=== PATIENT | male | born 1960 | race Caucasian/White ===

== ENCOUNTER 2017-02-05 05:54 | Observation (INO) | payer BC ==
[2017-02-05] MEDS ORDERED: ASPIRIN 81 MG CHEWTAB ONE (06:09)
[2017-02-05] MEDS ORDERED: ASPIRIN 81 MG CHEWTAB PO ONE (06:10)
--- NOTE | 2017-02-05 06:10 | DR.GENAD ---
HPI - HPI Comment HPI Comment: PATIENT HAVE NO SIGNIFICANT PAST MEDICAL ILLNESS. HE AVILES NOT TAKE ANY MEDICATION ON A DAILY BASES. HAVE EXPERIENCE HEART BURN ON AND OFF IN THE PAST. PAIN TODAY IS DIFFERENT. TODAYS PAIN IS INTERMITTENT WELL. DENIES TRAUMA. - Complaint/Symptoms Chief Complaint Doctors Comments: WOKE UP FROM SLEEP 05:20AM TODAY WITH SEVERE SUBSTENAL CHEST PRESSURE GOING INTO THE BACK OF THE CHEST ASSOCIATED WITH WEAKNESS, FATIGUE AND SOB. - Nurses notes reviewed Nurses Notes Review: Yes - Source History Provided: Patient - Mode of Arrival Mode of Arrival: Ambulatory - Timing Came on: Suddenly - Duration Duration: Constant Duration: Days - Severity Severity: Moderate PMH - PMH Past Surgical History: Yes Surgical History: Other - Social History Do you use any recreational Drugs:: No ROS - Review of Systems Constitutional: Weakness, Fatigue. negative: Chills, Fever Eyes: No Symptoms Reported. negative: Eye Pain, Discharge ENTM: No Symptoms Reported. negative: Ear Pain, Nose Discharge, Nose Congestion , Throat Pain Respiratoy: No Symptoms Reported, Short of Breath. negative: Productive Cough, Non-Productive Cough, Wheezing Cardiovascular: No Symptoms Reported Gastrointestinal/Abdominal: Abdominal Pain (EPIGASTRIC PAIN.) Genitourinary: No Symptoms Reported. negative: Dysuria, Frequency, Hematuria Neurological: No Symptoms Reported, Weakness. negative: Headache, Dizziness Musculoskeletal: No Symptoms Reported, Muscle Pain (UPPER BACK MUSCLES PAINFUL.) Integumentary: No Symptoms Reported Hematologic/Lymphatic: No Symptoms Reported Endocrine: No Symptoms Reported All Other Systems: Reviewed and Negative PE - Vital Signs Vitals: Temperature 98.6 F Pulse Rate [Apical] 54 Pulse Rate 57 Respiratory Rate 16 Blood Pressure [Right Arm] 110/73 Blood Pressure 131/69 O2 Sat by Pulse Oximetry 99 - General Limitations: No Limitations General Appearance: Alert - Head Head Exam: Normal Inspection - Eyes Eye exam: Normal Appearance - ENT ENT Exam: Normal External Ear Exam External Ear Exam: Normal External Inspection TM/Canal Exam: Bilateral Normal Nose Exam: Normal Nose Exam Mouth Exam: Normal Inspection Throat Exam: Normal Inspection - Neck Neck Exam: Normal Inspection - Chest Chest Inspection: Symmetric Chest Wall Rise - Respiratory Respiratory Exam: Normal Lung Sounds Bilat Respiratory Exam: Bilateral Rhonchi, Upper Rhonchi, Lower Rhonchi - Cardiovascular Cardiovascular Exam: Regular Rate, Normal Rhythm, Normal Heart Sounds - Abdominal Exam Abdominal Exam: Normal Bowel Sounds, Soft. negative: Tenderness - Extremities Extremities Exam: Normal Inspection. negative: Tenderness, Edema, Calf Tenderness - Back Back Exam: Tenderness (THORACIC SPINE.) - Neurologic Neurological Exam: Alert, Oriented X3, CN II-XII Intact, Normal Gait, Reflexes Normal. negative: Motor Sensory Deficit - Psychiatric Psychiatric Exam: Anxious - Skin Skin Exam: Normal Color MDM - Additional Information Additional Information Obtained From: Family - Differential Diagnosis Differential Diagnosis: CHEST PAIN Course - Treatment Treatment: SEE ORDERS. NTG PO WITH ASPRIN. STILL HURTING. MORPHIN IV WITH ZOFRAN. PAION IMPROVING. PATIENT WISH TO STAY AT THIS FACILY. - Reevaluation 1st: Improved - Consultation Consultation Comments: DISCUSS PATIENT WITH DR. SMITH. HE WILL ADMIT PATIENT. - Education/Counseling Education/Counseling: Patient, Education Educated On: Treatment, Diagnosis ROR - Labs Reviewed Laboratory Results Reviewed?: Yes Result Diagrams: 02/05/17 06:46 02/05/17 06:46 Laboratory: WBC 6.6 X10^3/uL (3.6-10.0) 02/05/17 06:46 RBC 4.93 X10^6/uL (4.7-6.0) 02/05/17 06:46 Hgb 15.5 g/dL (13.5-18.0) 02/05/17 06:46 Hct 44.1 % (42.0-54.0) 02/05/17 06:46 MCV 89.5 fL (80.0-100.0) 02/05/17 06:46 MCH 31.5 pg (27.0-34.0) 02/05/17 06:46 MCHC 35.2 g/dL (33.0-35.0) H 02/05/17 06:46 RDW 13.2 % (11.6-16.5) 02/05/17 06:46 Plt Count 202 X10^3/uL (150.0-450.0) 02/05/17 06:46 MPV 9.4 fL (7.4-11.0) 02/05/17 06:46 Neut % 59.9 % (42.0-75.0) 02/05/17 06:46 Lymph % 26.3 % (21.0-51.0) 02/05/17 06:46 [place] % 9.9 % (0.0-13.0) 02/05/17 06:46 Eos % 3.3 % (0.9-2.9) H 02/05/17 06:46 Baso % 0.6 % (0.2-1.0) 02/05/17 06:46 Neut # 4.0 x10^3/uL (2.2-4.8) 02/05/17 06:46 Lymph # 1.7 X10^3/uL (1.3-2.9) 02/05/17 06:46 [place] # 0.7 x10^3/uL (0.3-0.8) 02/05/17 06:46 Eos # 0.2 x10^3/uL (0.0-0.2) 02/05/17 06:46 Baso # 0.0 X10^3/uL (0.0-0.1) 02/05/17 06:46 Absolute Nucleated RBC 0.1 /100WBC 02/05/17 06:46 INR Target Range - 02/05/17 06:46 INR 0.92 (0.8-1.3) 02/05/17 06:46 PTT 24.1 SECONDS (22.9-36.5) 02/05/17 06:46 PTT Comment - 02/05/17 06:46 D-Dimer 110 ng/mL (0-400) 02/05/17 06:46 Sodium 141 mmol/L (136-145) 02/05/17 06:46 Corrected Sodium TNP 02/05/17 06:46 Potassium 4.2 mmol/L (3.5-5.1) 02/05/17 06:46 Chloride 106 mmol/L (98-107) 02/05/17 06:46 Carbon Dioxide 24.3 mmol/L (21-32) 02/05/17 06:46 BUN 16 mg/dL (7-18) 02/05/17 06:46 Creatinine 1.16 mg/dL (0.70-1.30) 02/05/17 06:46 Est GFR (MDRD) Af Amer > 60 (>60) 02/05/17 06:46 Est GFR (MDRD) Non-Af > 60 (>60) 02/05/17 06:46 Glucose 108 mg/dL (65-99) H 02/05/17 06:46 Calcium 9.2 mg/dL (8.5-10.1) 02/05/17 06:46 Corrected Calcium TNP 02/05/17 06:46 Total Bilirubin 0.60 mg/dL (0.2-1.0) 02/05/17 06:46 AST 25 Units/L (15-37) 02/05/17 06:46 ALT 44 Units/L (12-78) 02/05/17 06:46 Alkaline Phosphatase 98 Units/L (46-116) 02/05/17 06:46 Creatine Kinase 132 Units/L (39-308) 02/05/17 06:46 CK-MB (CK-2) 1.2 ng/mL (0-4.0) 02/05/17 06:46 CK/CKMB % Calc 0.9 % (<4) 02/05/17 06:46 Troponin I < 0.02 ng/mL (0-1.5) 02/05/17 06:46 B-Natriuretic Peptide 7.2 pg/mL (0-79) 02/05/17 06:46 Total Protein 6.7 g/dL (6.4-8.2) 02/05/17 06:46 Albumin 3.6 g/dL (3.4-5.0) 02/05/17 06:46 Globulin 3.1 g/dL (2.5-4.5) 02/05/17 06:46 Albumin/Globulin Ratio 1.2 Ratio (1.1-2.1) 02/05/17 06:46 H. pylori IgG Antibody Negative (NEGATIVE) 02/05/17 06:15 - XRAY XRAY Interpreted by: Radiologist XRAY Findings: REPORT DISCUSS WITH PATIENT AND HIS . - EKG Rhythm: NSR (EKG NOTED) - Diagnosis Discharge Problem: Chest pain - Discharge Plan Disposition: AGAINST MEDICAL ADVICE Condition: Stable - Follow ups/Referrals - Instructions
[2017-02-05] MEDS ORDERED: NITROSTAT SL PRN (06:18)
[2017-02-05] MEDS ORDERED: NS 1000 ML 0 ML ONE (06:21)
[2017-02-05] MEDS ORDERED: MORPHINE SULFATE INJ 4 MG IVP ONE ×2 (06:22→06:54)
[2017-02-05] MEDS ORDERED: ZOFRAN INJ 4 MG VIAL IVP ONE (06:22)
[2017-02-05] MEDS ORDERED: ZOFRAN INJ 4 MG VIAL ONE (06:26)
[2017-02-05] MEDS ORDERED: MORPHINE SULFATE INJ 4 MG ONE ×2 (06:26→06:57)
--- NOTE | 2017-02-05 06:28 | RAD ---
Chest, one view Indication: Chest pain Comparison: None Findings: Heart size is normal. No focal consolidation, effusion or pneumothorax is identified. Os seous thorax is unremarkable. Impression: No acute chest process. Reported By:
[2017-02-05] MEDS ORDERED: PEPCID 20 MG IV PREMIX* 20 MG/50 ML BAG IV ONE ×2 (06:54→06:56)
[2017-02-05 07:00] LABS: B-TYPE NATRIURETIC PEPTIDE 7.2 pg/mL (0-79)
[2017-02-05 07:06] LABS: BASOPHILS % (AUTO) 0.6 % (0.2-1.0); EOSINOPHILS # (AUTO) 0.2 x10^3/uL (0.0-0.2); EOSINOPHILS % (AUTO) 3.3 % (0.9-2.9); HEMATOCRIT 44.1 % (42.0-54.0); HEMOGLOBIN 15.5 g/dL (13.5-18.0); LYMPHOCYTES # (AUTO) 1.7 X10^3/uL (1.3-2.9); LYMPHOCYTES % (AUTO) 26.3 % (21.0-51.0); MEAN CORPUSCULAR HEMOGLOBIN 31.5 pg (27.0-34.0); MEAN CORPUSCULAR HGB CONC 35.2 g/dL (33.0-35.0); MEAN CORPUSCULAR VOLUME 89.5 fL (80.0-100.0); MEAN PLATELET VOLUME 9.4 fL (7.4-11.0); MONOCYTES # (AUTO) 0.7 x10^3/uL (0.3-0.8); MONOCYTES % (AUTO) 9.9 % (0.0-13.0); NEUTROPHILS % (AUTO) 59.9 % (42.0-75.0); PLATELET COUNT 202 X10^3/uL (150.0-450.0); RED BLOOD COUNT 4.93 X10^6/uL (4.7-6.0); RED CELL DISTRIBUTION WIDTH 13.2 % (11.6-16.5); WHITE BLOOD COUNT 6.6 X10^3/uL (3.6-10.0)
[2017-02-05 07:14] LABS: BLOOD UREA NITROGEN 16 mg/dL (7-18); CALCIUM 9.2 mg/dL (8.5-10.1); CARBON DIOXIDE 24.3 mmol/L (21-32); CHLORIDE 106 mmol/L (98-107); CREATININE 1.16 mg/dL (0.70-1.30); SODIUM 141 mmol/L (136-145); TROPONIN I < 0.02 ng/mL (0-1.5); eGFR BLACK RACES > 60 (>60); eGFR NON BLACK RACES > 60 (>60)
[2017-02-05 07:18] LABS: ALANINE AMINOTRANSFERASE 44 Units/L (12-78); ALBUMIN 3.6 g/dL (3.4-5.0); ALKALINE PHOSPHATASE 98 Units/L (46-116); ASPARTATE AMINO TRANSFERASE 25 Units/L (15-37); CKMB % 0.9 % (<4); CREATINE KINASE 132 Units/L (39-308); CREATINE KINASE MB 1.2 ng/mL (0-4.0); TOTAL PROTEIN 6.7 g/dL (6.4-8.2)
[2017-02-05] MEDS ORDERED: MORPHINE SULFATE INJ 2 MG INJ IVP PRN (07:46)
[2017-02-05 09:07] VITALS: BMI 24.3
[2017-02-05] MEDS: PEPCID 20 MG IV PREMIX* 20 MG/50 ML BAG IV SCH ×2 (09:44→20:18)
[2017-02-05] MEDS: DIOVAN TAB 80 MG PO SCH (09:44)
[2017-02-05 11:45] LABS: BILIRUBIN,URINE NEGATIVE (NEGATIVE); BLOOD/HEMOGLOBIN,URINE NEGATIVE (NEGATIVE); GLUCOSE, URINE NEGATIVE (NEGATIVE); KETONES,URINE NEGATIVE (NEGATIVE); LEUKOCYTE ESTERASE ,URINE NEGATIVE (NEGATIVE); NITRITES,URINE NEGATIVE (NEGATIVE); PROTEIN,URINE NEGATIVE (NEGATIVE); UROBILINOGEN,URINE NORMAL (NORMAL)
[2017-02-05 11:57] LABS: APPEARANCE,URINE CLEAR (CLEAR); BACTERIA,URINE NEGATIVE /HPF (NEGATIVE); COLOR,URINE DARK YELLOW (YELLOW); RBC,URINE 0 /HPF (NEGATIVE); SQUAMOUS EPITHELIAL CELL,UR RARE /HPF (NEGATIVE)
[2017-02-05 13:15] LABS: CKMB % 0.9 % (<4); CREATINE KINASE 113 Units/L (39-308); CREATINE KINASE MB < 1.0 ng/mL (0-4.0); TROPONIN I < 0.02 ng/mL (0-1.5)
[2017-02-05] MEDS ORDERED: NS 1000 ML 1,000 ML ONE (14:23)
[2017-02-05 19:07] LABS: CREATINE KINASE 105 Units/L (39-308); CREATINE KINASE MB < 1.0 ng/mL (0-4.0); TROPONIN I < 0.02 ng/mL (0-1.5)
[2017-02-05] MEDS ORDERED: NS 250 ML IV 250 ML IV ONE (20:14)
[2017-02-05] MEDS: ULTRAM PO PRN (20:17)
[2017-02-06 06:11] LABS: BASOPHILS # (AUTO) 0.1 X10^3/uL (0.0-0.1); BASOPHILS % (AUTO) 0.8 % (0.2-1.0); EOSINOPHILS # (AUTO) 0.3 x10^3/uL (0.0-0.2); EOSINOPHILS % (AUTO) 3.8 % (0.9-2.9); HEMATOCRIT 45.3 % (42.0-54.0); HEMOGLOBIN 15.7 g/dL (13.5-18.0); LYMPHOCYTES % (AUTO) 26.8 % (21.0-51.0); MEAN CORPUSCULAR HEMOGLOBIN 31.2 pg (27.0-34.0); MEAN CORPUSCULAR HGB CONC 34.6 g/dL (33.0-35.0); MEAN CORPUSCULAR VOLUME 90.2 fL (80.0-100.0); MEAN PLATELET VOLUME 9.7 fL (7.4-11.0); MONOCYTES # (AUTO) 0.7 x10^3/uL (0.3-0.8); MONOCYTES % (AUTO) 9.2 % (0.0-13.0); NEUTROPHILS # (AUTO) 4.4 x10^3/uL (2.2-4.8); NEUTROPHILS % (AUTO) 59.4 % (42.0-75.0); PLATELET COUNT 202 X10^3/uL (150.0-450.0); RED BLOOD COUNT 5.02 X10^6/uL (4.7-6.0); RED CELL DISTRIBUTION WIDTH 13.5 % (11.6-16.5); WHITE BLOOD COUNT 7.3 X10^3/uL (3.6-10.0)
[2017-02-06 06:20] LABS: ALANINE AMINOTRANSFERASE 39 Units/L (12-78); ALBUMIN 3.4 g/dL (3.4-5.0); ALKALINE PHOSPHATASE 98 Units/L (46-116); ASPARTATE AMINO TRANSFERASE 19 Units/L (15-37); BLOOD UREA NITROGEN 20 mg/dL (7-18); CALCIUM 8.9 mg/dL (8.5-10.1); CARBON DIOXIDE 26.9 mmol/L (21-32); CHLORIDE 105 mmol/L (98-107); CREATININE 1.29 mg/dL (0.70-1.30); SODIUM 140 mmol/L (136-145); TOTAL PROTEIN 6.4 g/dL (6.4-8.2); eGFR BLACK RACES > 60 (>60); eGFR NON BLACK RACES > 60 (>60)
--- NOTE | 2017-02-06 07:23 | RAD ---
Examination: Portable AP chest History: Chest pain SOB Comparison reference: 02/05/2017 Findings: Continued normal heart size with essentially clear lungs and pleural spaces. Impression: No interval change; no acute disease demonstrated. Reported By:
[2017-02-06] MEDS: PEPCID 20 MG IV PREMIX* 20 MG/50 ML BAG IV SCH ×2 (10:00→20:45)
[2017-02-06] MEDS: DIOVAN TAB 80 MG PO SCH (10:00)
--- NOTE | 2017-02-06 11:26 | DR.H&P ---
H&P - History & Physical for Day of: H&P Date: 02/05/17 - Chief Complaint Chief Complaint: CHEST PAIN, ABDOMINAL PAIN - Allergies Allergies/Adverse Reactions: Allergies Allergy/AdvReac Type Severity Reaction Status Date / Time No Known Drug Allergies Allergy Verified 02/05/17 06:02 - History of Present Illness History of Present Illness: is a 56 year old white male who presented to the emergency room with complaints of severe substernal chest pressure. Patient reports that pain woke him up suddenly at 5:20 this morning. He describes pain pressure that radiates to the back of his chest, with associated weakness, fatigue and shortness of breath. Associated symptoms include weakness , fatigue, abdominal pain, epigastric pain, frequent bowel movements, and upper back muscle painful. Patient only reports a medical history of GERD. On examination, lungs are clear to auscultation. Abdomen is soft, round, and noted with mild epigastric and RUQ tenderness. Normal bowel sounds are noted in all quadrants. He is noted with mild thoracic spinal tenderness. Patient given nitroglycerin in the emergency room. On arrival to the ER, vital signs were 98.6 , 57, 18, 100%RA, 131/69. Labs, EKG, and chest xray were obtained. Abnormal lab values include the following: MCHC 35.2, Eos% 3.3, Glucose 108. Cardiac enzymes were unremarkable. Urinalysis reports: Color Dark yellow, RBC 0, WBC 0-2, Squam Epith Cells Rare. EKG reported: Sinus rhythm. Heart rate=56. Chest xray reported : No acute chest process. Patient was given morphine 4mg IVP once in the ER and nitrostat 0.4mg SL x 1 with only mild improvement in pain. We admitted patient to the hospital for further treatment and evaluation. We started him on Pepcid 20mg iv q12h, morphine 4mg iv q4h prn pain, nitrostat 0.4mg SL q5m prn, ultram 50mg po q4h prn, and diovan 80mg po daily. We plan to follow up with AM labs and serial cardiac enzymes. We will continue to monitor patient. - Past Medical History Past Medical History: GERD - Past Surgical History Surgical History: Ortho Surgery (LEFT LEG ) - Family History Family Medical History: Diabetes Mellitus, Cancer - Social History Does patient currently use any type of tobacco product: No Have you used tobacco products in the last 12 months: No Type of Tobacco Use: None Does any household member use tobacco: No Alcohol Use: Occasionally Drug Use: None - Review of Systems Constitutional: Weakness Eyes: No Symptoms Reported, See HPI. denies: Pain, Vision Change, Conjunctivae Inflammation, Eyelid Inflammation, Redness, Other ENT: No Symptoms Reported, See HPI. denies: Ear Pain, Ear Discharge, Nose Pain , Nose Discharge, Nose Congestion, Mouth Pain, Mouth Swelling, Throat Pain, Throat Swelling, Other Respiratory: No Symptoms Reported, See HPI, Shortness of Breath. denies: Cough , Dry, Hemoptysis, SOB with Excertion, Pleuritic Pain, Sputum, Wheezing, Other Cardiovascular: Chest Pain. denies: See HPI, Palpitations, Orthopnea, Paroxysmal Noc. Dyspnea, Edema, Light Headedness, Other Gastrointestinal: Abdominal Pain (RUQ, EPIGASTRIC PAIN ), Diarrhea. denies: Nausea, Vomiting, Constipation, Melena, Hematochezia, Other Genitourinary: No Symptoms Reported. denies: See HPI, Dysuria, Frequency, Incontinence, Hematuria, Retention, Other Musculoskeletal: No Symptoms Reported, See HPI, Back Pain. denies: Shoulder Pain, Arm Pain, Hand Pain, Leg Pain, Foot Pain, Neck Pain, Other Skin: No Symptoms Reported. denies: See HPI, Rash, Lesions, Jaundice, Bruising , Wound, Ecchymosis, Other Neurological: No Symptoms Reported, See HPI, Weakness. denies: Numbness, Incoordination, Change in Speech, Confusion, Seizures, Other - Physical Exam Vital Signs: Temperature 97.9 F Pulse Rate [Apical] 58 Pulse Rate 57 Respiratory Rate 16 Blood Pressure [Right Arm] 101/61 Blood Pressure 131/69 O2 Sat by Pulse Oximetry 96 Oriented: Normal Eyes: Normal. negative: Blurred Vision, Diplopia, Discharge, Pain, Redness, Photophobia, Other Ear: Normal. negative: Right, Left, Swelling, Ecchymosis, Hemotypanum, Abrasion , Laceration Nose: Normal. negative: Injected, Discharge, Blood, Other Throat: Normal. negative: Tonsillar Hypertrophy, Red, Exudate, Dry, Other Respiratory: Clear Throughout Cardiovascular: Normal. negative: Tachycardia, Bradycardia, Irregular, S3, S4, Systolic, Diastolic, Murmur, Edema, Other : Normal. negative: Dysuria, Hematuria, Frequency, Discharge, Testicular Pain , Bleeding, , Other Auscultation: Bowel Sounds: Normal. negative: Bruit, Absent, Increased, Decreased, High Pitched, Other Palpation: Normal. negative: Spleen Enlarged, Liver Enlarged, Mass Pulsatile, Other Tenderness: RUQ, Epigastric, Mild. negative: Rebound, Guarding, Rigidity Skin: Normal. negative: Diaphoresis, Wound, Bruising, Ecchymosis Musculoskeletal: Back:Thoracic, Tender Psychiatric: Normal. negative: Anxiety, Depression, Agitation, Other Mood Description: Calm. negative: Angry, Apathetic, Depressed, Fearful, Flat, Happy, Hostile, Sad, Suspicious, Withdrawn, Anxious, Appropriate, Labile Affect: Normal Speech Pattern: Clear - Assessment/Plan (1) Chest pain Qualifiers: Chest pain type: unspecified Qualified Code(s): R07.9 - Chest pain, unspecified Status: Acute Plan: SERIAL CARDIAC ENZYMES AND EKG, SUPPLEMENTAL OXYGEN, TELEMETRY, NITROSTAT PRN, MORPHINE 4MG IV Q4H PRN, CONTINUE TO MONITOR (2) Abdominal pain Qualifiers: Abdominal location: right upper quadrant Qualified Code(s): R10.11 - Right upper quadrant pain Status: Acute Plan: ULTRAM PRN PAIN, MORPHINE PRN PAIN, PEPCID 20MG IV BID, CONTINUE TO MONITOR
[2017-02-06] MEDS ORDERED: MOTRIN TAB 400 MG PO PRN (13:22)
[2017-02-06] MEDS ORDERED: ADVIL TAB 200 MG PO ONE (13:25)
[2017-02-06] MEDS: ADVIL TAB 200 MG PO PRN (13:27)
--- NOTE | 2017-02-06 13:45 | US ---
Limited abdominal ultrasound Indication: Right upper quadrant pain Technique: Sonographic images of the abdomen were obtained per protocol. Findings: There is no cholelithiasis, gallbladder distention, wall thickening, or pericholecystic flu id. No biliary dilation is observed; the common duct measured 4 mm in diameter. The visualized liver and right kidney were unremarkable. The pancreas was obscured. Impression: Normal gallbladder ultrasound. Reported By:
[2017-02-07 06:07] LABS: BASOPHILS % (AUTO) 0.4 % (0.2-1.0); EOSINOPHILS # (AUTO) 0.2 x10^3/uL (0.0-0.2); EOSINOPHILS % (AUTO) 3.1 % (0.9-2.9); HEMATOCRIT 45.9 % (42.0-54.0); HEMOGLOBIN 16.3 g/dL (13.5-18.0); LYMPHOCYTES # (AUTO) 1.9 X10^3/uL (1.3-2.9); LYMPHOCYTES % (AUTO) 23.6 % (21.0-51.0); MEAN CORPUSCULAR HEMOGLOBIN 31.9 pg (27.0-34.0); MEAN CORPUSCULAR HGB CONC 35.5 g/dL (33.0-35.0); MEAN CORPUSCULAR VOLUME 89.8 fL (80.0-100.0); MEAN PLATELET VOLUME 9.8 fL (7.4-11.0); MONOCYTES # (AUTO) 0.8 x10^3/uL (0.3-0.8); MONOCYTES % (AUTO) 10.5 % (0.0-13.0); NEUTROPHILS % (AUTO) 62.4 % (42.0-75.0); PLATELET COUNT 187 X10^3/uL (150.0-450.0); RED BLOOD COUNT 5.11 X10^6/uL (4.7-6.0); RED CELL DISTRIBUTION WIDTH 13.3 % (11.6-16.5)
[2017-02-07 06:33] LABS: ALANINE AMINOTRANSFERASE 36 Units/L (12-78); ALBUMIN 3.4 g/dL (3.4-5.0); ALKALINE PHOSPHATASE 99 Units/L (46-116); ASPARTATE AMINO TRANSFERASE 18 Units/L (15-37); BLOOD UREA NITROGEN 21 mg/dL (7-18); CARBON DIOXIDE 27.7 mmol/L (21-32); CHLORIDE 106 mmol/L (98-107); CREATININE 1.23 mg/dL (0.70-1.30); SODIUM 141 mmol/L (136-145); TOTAL PROTEIN 6.5 g/dL (6.4-8.2); eGFR BLACK RACES > 60 (>60); eGFR NON BLACK RACES > 60 (>60)
[2017-02-07 08:25] LABS: CHOL/HDL RATIO 6.8 (0.0-5.0)
[2017-02-07] MEDS: PEPCID 20 MG IV PREMIX* 20 MG/50 ML BAG IV SCH ×2 (12:41→22:20)
--- NOTE | 2017-02-07 13:40 | NM ---
Indication: Pain Exam: HIDA scan and ejection fraction Technique: The patient was injected with 5.4 mCi of Choletec IV with dynamic and delayed images obtai brett. There is physiologic uptake throughout the liver with no focal defects. There was uptake in the gallbladder and small bowel within 1 hour. No focal defects are seen. The patient was then given 8 oz of Ensure Plus and a gallbladder ejection fraction was calculated at 13% with normal considered grea ter than 35%. Impression: Abnormally decreased gallbladder ejection fraction otherwise, unremarkable. Reported By:
[2017-02-07] MEDS: ULTRAM PO PRN (16:02)
[2017-02-07] MEDS: ADVIL TAB 200 MG PO PRN (18:00)
[2017-02-08 05:40] LABS: BASOPHILS % (AUTO) 0.5 % (0.2-1.0); EOSINOPHILS # (AUTO) 0.3 x10^3/uL (0.0-0.2); EOSINOPHILS % (AUTO) 3.5 % (0.9-2.9); HEMOGLOBIN 15.7 g/dL (13.5-18.0); LYMPHOCYTES # (AUTO) 2.2 X10^3/uL (1.3-2.9); LYMPHOCYTES % (AUTO) 30.4 % (21.0-51.0); MEAN CORPUSCULAR HEMOGLOBIN 31.7 pg (27.0-34.0); MEAN CORPUSCULAR HGB CONC 34.9 g/dL (33.0-35.0); MEAN CORPUSCULAR VOLUME 90.6 fL (80.0-100.0); MEAN PLATELET VOLUME 9.5 fL (7.4-11.0); MONOCYTES # (AUTO) 0.7 x10^3/uL (0.3-0.8); MONOCYTES % (AUTO) 9.9 % (0.0-13.0); NEUTROPHILS % (AUTO) 55.7 % (42.0-75.0); PLATELET COUNT 193 X10^3/uL (150.0-450.0); RED BLOOD COUNT 4.97 X10^6/uL (4.7-6.0); RED CELL DISTRIBUTION WIDTH 13.3 % (11.6-16.5); WHITE BLOOD COUNT 7.2 X10^3/uL (3.6-10.0)
[2017-02-08 05:47] LABS: ALANINE AMINOTRANSFERASE 35 Units/L (12-78); ALBUMIN 3.3 g/dL (3.4-5.0); ALKALINE PHOSPHATASE 96 Units/L (46-116); ASPARTATE AMINO TRANSFERASE 19 Units/L (15-37); BLOOD UREA NITROGEN 21 mg/dL (7-18); CALCIUM 8.8 mg/dL (8.5-10.1); CARBON DIOXIDE 30.4 mmol/L (21-32); CHLORIDE 105 mmol/L (98-107); COR CA(FOR HYPOALB) 9.4 mg/dL (8.5-10.1); CREATININE 1.27 mg/dL (0.70-1.30); SODIUM 140 mmol/L (136-145); TOTAL PROTEIN 6.4 g/dL (6.4-8.2); eGFR BLACK RACES > 60 (>60); eGFR NON BLACK RACES > 60 (>60)
[2017-02-08] MEDS: PEPCID 20 MG IV PREMIX* 20 MG/50 ML BAG IV SCH (08:54)
--- NOTE | 2017-02-08 09:54 | PCM.PROG ---
Progress Note - Progress Note for Day of Date: 02/06/17 - Subjective Subjective: WAS ADMITTED FOR CHEST PAIN AND ABDOMIAL PAIN. TODAY, HE IS ALERT AND ORIENTED, LYING IN BED ON MORNING ROUNDS. HE IS NOTED WITH COMPLAINTS OF RUQ ABDOMINAL PAIN. HE DENIES CHEST PAIN OR SHORTNESS OF BREATH THIS MORNING. ON EXAMINATION, LUNGS ARE CLEAR TO AUSCULTATION. ABDOMEN IS ROUND , SOFT, AND NOTED WITH TENDERNESS TO THE RUQ ON PALPATION. PATIENT ALSO REPORTS FREQUENT BOWEL MOVEMENTS THROUGHOUT THE NIGHT AND INTO THE MORNING. 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 HIS VITAL SIGNS THIS MORNING ARE 97.9-54-16-96%-102/55. ABNORMAL LAB VALUES INCLUDE THE FOLLOWING: BUN, ALBUMIN 3.3, TRIGLYCERIDES 175, CHOLESTEROL 203, LDL 138, HDL 30, RATIO 6.8. CARDIAC ENZYMES AND EKGS HAVE BEEN WITHIN NORMAL LIMITS. WE OBTAINED A GALLBLADDER ULTRASOUND TODAY. IT WAS UNREMARKABLE. WE WILL OBTAIN A HIDA SCAN WITH EJECTION FRACTION IN THE MORNING. AFTER DISCHARGE, PATIENT WILL BE SCHEDULED FOR AN OUTPATIENT STRESS TEST AND ECHOCARDIOGRAM. OTHERWISE, WE WILL CONTINUE WITH CURRENT PLAN OF CARE TODAY. WE PLAN TO FOLLOW UP WITH AM LABS AND CONTINUE TO MONITOR PATIENT. - Past Medical Family Social History Past Med/Fam/Surg Hx: No changes since H&P Allergies: Allergies No Known Drug Allergies Allergy (Verified 02/05/17 06:02) - Review of Systems ROS: No change since H&P - Vital Signs and I&O's Vital Signs: Temperature 98.0 F Pulse Rate [Apical] 70 Pulse Rate 57 Respiratory Rate 18 Blood Pressure [Right Arm] 117/68 Blood Pressure 131/69 O2 Sat by Pulse Oximetry 98 Intake and Output: Intake & Output 02/05/17 02/06/17 02/07/17 02/08/17 11:59 11:59 11:59 11:59 Intake Total 1934 266 5606 Balance 4195 824 3444 - Physical Exam Oriented: Normal Eyes: Normal. negative: Blurred Vision, Diplopia, Discharge, Pain, Redness, Photophobia, Other Ear: Normal. negative: Right, Left, Swelling, Ecchymosis, Hemotypanum, Abrasion , Laceration Nose: Normal. negative: Injected, Discharge, Blood, Other Throat: Normal. negative: Tonsillar Hypertrophy, Red, Exudate, Dry, Other Respiratory: Normal Cardiovascular: Normal. negative: Tachycardia, Bradycardia, Irregular, S3, S4, Systolic, Diastolic, Murmur, Edema, Other : Normal. negative: Dysuria, Hematuria, Frequency, Discharge, Testicular Pain , Bleeding, , Other Auscultation: Bowel Sounds: Normal. negative: Bruit, Absent, Increased, Decreased, High Pitched, Other Palpation: Normal Tenderness: RUQ, Epigastric, Mild. negative: Rebound, Guarding, Rigidity Skin: Normal. negative: Diaphoresis, Wound, Bruising, Ecchymosis Musculoskeletal: Back:Thoracic, Tender Psychiatric: Normal. negative: Anxiety, Depression, Agitation, Other Mood Description: Calm. negative: Angry, Apathetic, Depressed, Fearful, Flat, Happy, Hostile, Sad, Suspicious, Withdrawn, Anxious, Appropriate, Labile Affect: Normal Speech Pattern: Clear, Appropriate - Laboratory and Diagnostics Result Diagrams: 02/08/17 05:00 02/08/17 05:00 Labs: Laboratory WBC 7.2 X10^3/uL (3.6-10.0) 02/08/17 05:00 RBC 4.97 X10^6/uL (4.7-6.0) 02/08/17 05:00 Hgb 15.7 g/dL (13.5-18.0) 02/08/17 05:00 Hct 45.0 % (42.0-54.0) 02/08/17 05:00 MCV 90.6 fL (80.0-100.0) 02/08/17 05:00 MCH 31.7 pg (27.0-34.0) 02/08/17 05:00 MCHC 34.9 g/dL (33.0-35.0) 02/08/17 05:00 RDW 13.3 % (11.6-16.5) 02/08/17 05:00 Plt Count 193 X10^3/uL (150.0-450.0) 02/08/17 05:00 MPV 9.5 fL (7.4-11.0) 02/08/17 05:00 Neut % 55.7 % (42.0-75.0) 02/08/17 05:00 Lymph % 30.4 % (21.0-51.0) 02/08/17 05:00 [place] % 9.9 % (0.0-13.0) 02/08/17 05:00 Eos % 3.5 % (0.9-2.9) H 02/08/17 05:00 Baso % 0.5 % (0.2-1.0) 02/08/17 05:00 Neut # 4.0 x10^3/uL (2.2-4.8) 02/08/17 05:00 Lymph # 2.2 X10^3/uL (1.3-2.9) 02/08/17 05:00 [place] # 0.7 x10^3/uL (0.3-0.8) 02/08/17 05:00 Eos # 0.3 x10^3/uL (0.0-0.2) H 02/08/17 05:00 Baso # 0.0 X10^3/uL (0.0-0.1) 02/08/17 05:00 Absolute Nucleated RBC 0.1 /100WBC 02/08/17 05:00 INR Target Range - 02/05/17 06:46 INR 0.92 (0.8-1.3) 02/05/17 06:46 PTT 24.1 SECONDS (22.9-36.5) 02/05/17 06:46 PTT Comment - 02/05/17 06:46 D-Dimer 110 ng/mL (0-400) 02/05/17 06:46 Sodium 140 mmol/L (136-145) 02/08/17 05:00 Corrected Sodium TNP 02/08/17 05:00 Potassium 3.9 mmol/L (3.5-5.1) 02/08/17 05:00 Chloride 105 mmol/L (98-107) 02/08/17 05:00 Carbon Dioxide 30.4 mmol/L (21-32) 02/08/17 05:00 BUN 21 mg/dL (7-18) H 02/08/17 05:00 Creatinine 1.27 mg/dL (0.70-1.30) 02/08/17 05:00 Est GFR (MDRD) Af Amer > 60 (>60) 02/08/17 05:00 Est GFR (MDRD) Non-Af > 60 (>60) 02/08/17 05:00 Glucose 95 mg/dL (65-99) 02/08/17 05:00 Calcium 8.8 mg/dL (8.5-10.1) 02/08/17 05:00 Corrected Calcium 9.4 mg/dL (8.5-10.1) 02/08/17 05:00 Total Bilirubin 0.50 mg/dL (0.2-1.0) 02/08/17 05:00 AST 19 Units/L (15-37) 02/08/17 05:00 ALT 35 Units/L (12-78) 02/08/17 05:00 Alkaline Phosphatase 96 Units/L (46-116) 02/08/17 05:00 Creatine Kinase 105 Units/L (39-308) 02/05/17 18:36 CK-MB (CK-2) < 1.0 ng/mL (0-4.0) 02/05/17 18:36 CK/CKMB % Calc 1.0 % (<4) 02/05/17 18:36 Troponin I < 0.02 ng/mL (0-1.5) 02/05/17 18:36 B-Natriuretic Peptide 7.2 pg/mL (0-79) 02/05/17 06:46 Total Protein 6.4 g/dL (6.4-8.2) 02/08/17 05:00 Albumin 3.3 g/dL (3.4-5.0) L 02/08/17 05:00 Globulin 3.1 g/dL (2.5-4.5) 02/08/17 05:00 Albumin/Globulin Ratio 1.1 Ratio (1.1-2.1) 02/08/17 05:00 Triglycerides 175 mg/dL (0-150) H 02/07/17 05:26 Cholesterol 203 mg/dL (0-200) H 02/07/17 05:26 LDL Cholesterol, Calc 138 mg/dL (0-100) H 02/07/17 05:26 HDL Cholesterol 30 mg/dL (40-60) L 02/07/17 05:26 Cholesterol/HDL Ratio 6.8 (0.0-5.0) H 02/07/17 05:26 Specimen Type Clean catch urine 02/05/17 11:16 Urine Color Dark yellow (YELLOW) 02/05/17 11:16 Urine Appearance Clear (CLEAR) 02/05/17 11:16 Urine pH 6.0 (5.0 - 8.0) 02/05/17 11:16 Ur Specific [place] 1.010 (1.000-1.030) 02/05/17 11:16 Urine Protein Negative (NEGATIVE) 02/05/17 11:16 Urine Glucose (UA) Negative (NEGATIVE) 02/05/17 11:16 Urine Ketones Negative (NEGATIVE) 02/05/17 11:16 Urine Occult Blood Negative (NEGATIVE) 02/05/17 11:16 Urine Nitrite Negative (NEGATIVE) 02/05/17 11:16 Urine Bilirubin Negative (NEGATIVE) 02/05/17 11:16 Urine Urobilinogen Normal (NORMAL) 02/05/17 11:16 Ur Leukocyte Esterase Negative (NEGATIVE) 02/05/17 11:16 Urine RBC 0 /HPF (NEGATIVE) 02/05/17 11:16 Urine WBC 0-2 /HPF (NEGATIVE) 02/05/17 11:16 Ur Squamous Epith Cells Rare /HPF (NEGATIVE) 02/05/17 11:16 Urine Bacteria Negative /HPF (NEGATIVE) 02/05/17 11:16 Ur Culture Indicated? No/not indicated 02/05/17 11:16 H. pylori IgG Antibody Negative (NEGATIVE) 02/05/17 06:15 - Plan (1) Chest pain Status: Acute Qualifiers: Chest pain type: unspecified Qualified Code(s): R07.9 - Chest pain, unspecified Plan: SUPPLEMENTAL OXYGEN, TELEMETRY, NITROSTAT PRN, CONTINUE TO MONITOR (2) Abdominal pain Status: Acute Qualifiers: Abdominal location: right upper quadrant Qualified Code(s): R10.11 - Right upper quadrant pain Plan: ULTRAM PRN PAIN, PEPCID 20MG IV BID, OBTAIN GALLBLADDER US AND HIDA SCAN, CONTINUE TO MONITOR
[2017-02-08] MEDS ORDERED: NS 1000 ML 1,000 ML ONE (14:27)
[2017-02-08] MEDS ORDERED: ANCEF VIAL 1 GM ONE (14:27)
[2017-02-08] MEDS ORDERED: NS 100 ML IV 100 ML IV ONE (14:27)
[2017-02-08] MEDS ORDERED: XYLOCAINE 1% and EPINEPHRINE 1:100,000 ONE (14:42)
[2017-02-08] MEDS ORDERED: MARCAINE 0.25% INJ ONE (14:42)
[2017-02-08] MEDS ORDERED: FENTANYL INJ 250 mcg ONE (15:01)
[2017-02-08] MEDS ORDERED: NORCURON INJ 10 MG VIAL ONE (15:45)
[2017-02-08] MEDS ORDERED: NEOSTIGMINE INJ ONE (15:45)
[2017-02-08] MEDS ORDERED: ZOFRAN INJ 4 MG VIAL ONE (15:45)
[2017-02-08] MEDS ORDERED: XYLOCAINE 2 % (PLAIN) ONE (15:45)
[2017-02-08] MEDS ORDERED: ROBINUL ONE (15:45)
[2017-02-08] MEDS ORDERED: DIPRIVAN VIAL ONE (15:45)
[2017-02-08] MEDS ORDERED: QUELICIN (OR ANECTINE) ONE (15:45)
[2017-02-08] MEDS ORDERED: SUPRANE IN ONE (15:45)
[2017-02-08] MEDS ORDERED: NS IRRIGATION 3000 ML 3,000 ML IR ONE (16:10)
[2017-02-08] MEDS ORDERED: DILAUDID INJ ONE (16:59)
[2017-02-08] MEDS: DILAUDID INJ IVP PRN ×3 (17:01→17:13)
--- NOTE | 2017-02-08 17:02 | OR.GENERIC ---
Post-Op Note Generic - Post-Op Note Operative Report: Date of Operation: February 08, 2017 Pre-Operative Diagnosis: 1. Biliary dyskinesia. 2. Umbilical hernia. Post-Operative Diagnosis: 1. Biliary dyskinesia. 2. Umbilical hernia (fascial defect 1.5 cm). Procedure: 1. Laparoscopic cholecystectomy. 2. Primary repair of umbilical hernia. Surgeon: Michael Santa MD. Programmer: Fernando Mcgrath CRNA. Specimen: Gallbladder. Estimated blood loss: Minimal. Complications: None. Summary: The patient is a 56 year old male who presented with biliary dyskinesia. The patient was offered cholecystectomy. The risk and benefits of the procedure including difficulty with anesthesia, bleeding, infection, conversion to open procedure, bile leak, hernia formation, DVT, as well as PE were discussed with the patient. The patient understood these risks and requested the procedure. On February 08, 2017, the patient was brought to the operative theatre. A time out was performed verifying the patient and procedure. The patient received Ancef for pre-operative antibiosis. After satisfactory induction of general endotracheal anesthesia, the abdomen was prepped with Chloraprep and draped in the usual sterile fashion. The skin and subcutaneous tissue at the umbilicus was anesthetized using local anesthetic. A small hernia was noted at the umbilicus. The skin was incised sharply. A 12 mm trocar was placed though the incision and into the peritoneal cavity using the Zan technique. Carbon dioxide was infiltrated through this trocar to obtain a pneumoperitoneum of 15 mm Hg. A camera was placed through this trocar and swept in all directions. No injury was seen from entering the peritoneal cavity. A site was selected in the subxiphoid location for our 2nd trocar. The skin and fascia was anesthetized using local anesthetic. The skin was incised sharply. A 5 mm trocar was placed into the peritoneal cavity under direct visualization. In a similar manner, two additional 5 mm trocars were placed. The first was placed in the mid-clavicular line approximately 2 fingerbreadths inferior to the left costal margin and a second in the anterior axillary line approximately 2 fingerbreadths inferior to the left costal margin. The patient was placed in reverse Trendelenburg and rotated to the patients left. The gallbladder was grasped at the fundus and elevated cephalad and slightly lateral. The peritoneum on the medial and lateral aspects of the infundibulum of the gallbladder was scored using hook electrocautery. Using blunt dissection, the cystic artery and duct were isolated. The critical view of safety was obtained. Both of these structures were divided between endoclips. The gallbladder was dissected free using hook electrocautery. The gallbladder was placed in an endobag and removed through the umbilical trocar site without difficulty. The trocar and camera were placed back inside the abdomen. Our clips were noted in good position. Bleeding of the gallbladder fossa was controlled using electrocautery. At this point, the 5 mm trocars were removed under direct visualization. No bleeding was seen. The umbilical trocar was then removed and pneumoperitoneum released. The fascia at the umbilicus was cleared circumferentially using blunt dissection and electrocautery. The fascial defect was approximately 1.5 cm. The fascia at the umbilicus was closed using a 0-Vicryl placed in a [id number] configuration x 2. The skin edges at all incisions were re-approximated using inverted, interrupted 4- 0 Monocryl sutures. Mastisol and Steri-strips were placed. Sterile dressings were placed. The patient was awakened and taken to the recovery room in stable condition. There were no complications. All counts were correct.
[2017-02-08] MEDS ORDERED: PHENERGAN INJ 25 MG IVP PRN (17:07)
[2017-02-08] MEDS ORDERED: ZOFRAN INJ 4 MG VIAL IVP PRN (17:07)
[2017-02-08 18:35] VITALS: BP 146/84
[2017-02-08] MEDS ORDERED: LIPITOR TAB 40 MG PO SCH (21:00)
--- NOTE | 2017-02-10 21:48 | PCM.PROG ---
Progress Note - Progress Note for Day of Date: 02/07/17 - Subjective Subjective: WAS ADMITTED FOR CHEST PAIN AND ABDOMIAL PAIN. TODAY, HE IS ALERT AND ORIENTED, LYING IN BED ON MORNING ROUNDS. HE CONTINUES WITH COMPLAINTS OF RUQ ABDOMINAL PAIN. HE DENIES CHEST PAIN OR SHORTNESS OF BREATH THIS MORNING. ON EXAMINATION, LUNGS ARE CLEAR TO AUSCULTATION. ABDOMEN IS ROUND , SOFT, AND NOTED WITH TENDERNESS TO THE RUQ ON PALPATION. PATIENT ALSO REPORTS FREQUENT BOWEL MOVEMENTS THROUGHOUT THE NIGHT AND INTO THE MORNING. 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 HIS VITAL SIGNS THIS MORNING ARE 98.4-56-16-98%-117/56. ABNORMAL LAB VALUES INCLUDE THE FOLLOWING: BUN 21. WE OBTAINED A HIDA SCAN WITH EJECTION FRACTION THIS MORNING. IT REPORTED ABNORMALLY DECREASED GALLBLADDER EJECTION FRACTION OF 13%. WE DISCUSSED FINDINGS WITH PATIENT. WE PLAN TO CONSULT FOR LAPROSCOPIC CHOLECYSTECTOMY. PATIENT IS MEDICALLY CLEAR FOR SURGERY SHOULD HE AND PLAN FOR REMOVAL OF GALLBLADDER. WE WILL START HIM ON ATORVASTATIN 40MG PO AT BEDTIME FOR ABNORMAL FASTING LIPIDS. AFTER DISCHARGE, PATIENT WILL BE SCHEDULED FOR AN OUTPATIENT STRESS TEST AND ECHOCARDIOGRAM. OTHERWISE, WE WILL CONTINUE WITH CURRENT PLAN OF CARE TODAY. WE PLAN TO FOLLOW UP WITH AM LABS AND CONTINUE TO MONITOR PATIENT. - Past Medical Family Social History Past Med/Fam/Surg Hx: No changes since H&P Allergies: Allergies No Known Drug Allergies Allergy (Verified 02/05/17 06:02) - Review of Systems ROS: No change since H&P - Vital Signs and I&O's Vital Signs: Temperature 97.9 F Pulse Rate [Apical] 59 Pulse Rate 60 Respiratory Rate 16 Blood Pressure [Right Arm] 146/84 Blood Pressure 139/80 O2 Sat by Pulse Oximetry 99 Intake and Output: Intake & Output 02/08/17 02/09/17 02/10/17 02/11/17 11:59 11:59 11:59 11:59 Intake Total 1030 30 Output Total 1500 Balance 1030 -1470 - Physical Exam Oriented: Normal Eyes: Normal. negative: Blurred Vision, Diplopia, Discharge, Pain, Redness, Photophobia, Other Ear: Normal. negative: Right, Left, Swelling, Ecchymosis, Hemotypanum, Abrasion , Laceration Nose: Normal. negative: Injected, Discharge, Blood, Other Throat: Normal. negative: Tonsillar Hypertrophy, Red, Exudate, Dry, Other Respiratory: Normal Cardiovascular: Normal. negative: Tachycardia, Bradycardia, Irregular, S3, S4, Systolic, Diastolic, Murmur, Edema, Other : Normal. negative: Dysuria, Hematuria, Frequency, Discharge, Testicular Pain , Bleeding, , Other Auscultation: Bowel Sounds: Normal. negative: Bruit, Absent, Increased, Decreased, High Pitched, Other Palpation: Normal Tenderness: RUQ, Epigastric, Mild. negative: Rebound, Guarding, Rigidity Skin: Normal. negative: Diaphoresis, Wound, Bruising, Ecchymosis Musculoskeletal: Back:Thoracic, Tender Psychiatric: Normal. negative: Anxiety, Depression, Agitation, Other Mood Description: Calm Affect: Normal Speech Pattern: Clear, Appropriate - Laboratory and Diagnostics Result Diagrams: 02/08/17 05:00 02/08/17 05:00 Labs: Laboratory WBC 7.2 X10^3/uL (3.6-10.0) 02/08/17 05:00 RBC 4.97 X10^6/uL (4.7-6.0) 02/08/17 05:00 Hgb 15.7 g/dL (13.5-18.0) 02/08/17 05:00 Hct 45.0 % (42.0-54.0) 02/08/17 05:00 MCV 90.6 fL (80.0-100.0) 02/08/17 05:00 MCH 31.7 pg (27.0-34.0) 02/08/17 05:00 MCHC 34.9 g/dL (33.0-35.0) 02/08/17 05:00 RDW 13.3 % (11.6-16.5) 02/08/17 05:00 Plt Count 193 X10^3/uL (150.0-450.0) 02/08/17 05:00 MPV 9.5 fL (7.4-11.0) 02/08/17 05:00 Neut % 55.7 % (42.0-75.0) 02/08/17 05:00 Lymph % 30.4 % (21.0-51.0) 02/08/17 05:00 [place] % 9.9 % (0.0-13.0) 02/08/17 05:00 Eos % 3.5 % (0.9-2.9) H 02/08/17 05:00 Baso % 0.5 % (0.2-1.0) 02/08/17 05:00 Neut # 4.0 x10^3/uL (2.2-4.8) 02/08/17 05:00 Lymph # 2.2 X10^3/uL (1.3-2.9) 02/08/17 05:00 [place] # 0.7 x10^3/uL (0.3-0.8) 02/08/17 05:00 Eos # 0.3 x10^3/uL (0.0-0.2) H 02/08/17 05:00 Baso # 0.0 X10^3/uL (0.0-0.1) 02/08/17 05:00 Absolute Nucleated RBC 0.1 /100WBC 02/08/17 05:00 INR Target Range - 02/05/17 06:46 INR 0.92 (0.8-1.3) 02/05/17 06:46 PTT 24.1 SECONDS (22.9-36.5) 02/05/17 06:46 PTT Comment - 02/05/17 06:46 D-Dimer 110 ng/mL (0-400) 02/05/17 06:46 Sodium 140 mmol/L (136-145) 02/08/17 05:00 Corrected Sodium TNP 02/08/17 05:00 Potassium 3.9 mmol/L (3.5-5.1) 02/08/17 05:00 Chloride 105 mmol/L (98-107) 02/08/17 05:00 Carbon Dioxide 30.4 mmol/L (21-32) 02/08/17 05:00 BUN 21 mg/dL (7-18) H 02/08/17 05:00 Creatinine 1.27 mg/dL (0.70-1.30) 02/08/17 05:00 Est GFR (MDRD) Af Amer > 60 (>60) 02/08/17 05:00 Est GFR (MDRD) Non-Af > 60 (>60) 02/08/17 05:00 Glucose 95 mg/dL (65-99) 02/08/17 05:00 Calcium 8.8 mg/dL (8.5-10.1) 02/08/17 05:00 Corrected Calcium 9.4 mg/dL (8.5-10.1) 02/08/17 05:00 Total Bilirubin 0.50 mg/dL (0.2-1.0) 02/08/17 05:00 AST 19 Units/L (15-37) 02/08/17 05:00 ALT 35 Units/L (12-78) 02/08/17 05:00 Alkaline Phosphatase 96 Units/L (46-116) 02/08/17 05:00 Creatine Kinase 105 Units/L (39-308) 02/05/17 18:36 CK-MB (CK-2) < 1.0 ng/mL (0-4.0) 02/05/17 18:36 CK/CKMB % Calc 1.0 % (<4) 02/05/17 18:36 Troponin I < 0.02 ng/mL (0-1.5) 02/05/17 18:36 B-Natriuretic Peptide 7.2 pg/mL (0-79) 02/05/17 06:46 Total Protein 6.4 g/dL (6.4-8.2) 02/08/17 05:00 Albumin 3.3 g/dL (3.4-5.0) L 02/08/17 05:00 Globulin 3.1 g/dL (2.5-4.5) 02/08/17 05:00 Albumin/Globulin Ratio 1.1 Ratio (1.1-2.1) 02/08/17 05:00 Triglycerides 175 mg/dL (0-150) H 02/07/17 05:26 Cholesterol 203 mg/dL (0-200) H 02/07/17 05:26 LDL Cholesterol, Calc 138 mg/dL (0-100) H 02/07/17 05:26 HDL Cholesterol 30 mg/dL (40-60) L 02/07/17 05:26 Cholesterol/HDL Ratio 6.8 (0.0-5.0) H 02/07/17 05:26 Specimen Type Clean catch urine 02/05/17 11:16 Urine Color Dark yellow (YELLOW) 02/05/17 11:16 Urine Appearance Clear (CLEAR) 02/05/17 11:16 Urine pH 6.0 (5.0 - 8.0) 02/05/17 11:16 Ur Specific [place] 1.010 (1.000-1.030) 02/05/17 11:16 Urine Protein Negative (NEGATIVE) 02/05/17 11:16 Urine Glucose (UA) Negative (NEGATIVE) 02/05/17 11:16 Urine Ketones Negative (NEGATIVE) 02/05/17 11:16 Urine Occult Blood Negative (NEGATIVE) 02/05/17 11:16 Urine Nitrite Negative (NEGATIVE) 02/05/17 11:16 Urine Bilirubin Negative (NEGATIVE) 02/05/17 11:16 Urine Urobilinogen Normal (NORMAL) 02/05/17 11:16 Ur Leukocyte Esterase Negative (NEGATIVE) 02/05/17 11:16 Urine RBC 0 /HPF (NEGATIVE) 02/05/17 11:16 Urine WBC 0-2 /HPF (NEGATIVE) 02/05/17 11:16 Ur Squamous Epith Cells Rare /HPF (NEGATIVE) 02/05/17 11:16 Urine Bacteria Negative /HPF (NEGATIVE) 02/05/17 11:16 Ur Culture Indicated? No/not indicated 02/05/17 11:16 H. pylori IgG Antibody Negative (NEGATIVE) 02/05/17 06:15 Tissue Pathology To follow 02/08/17 16:13 - Plan (1) Chest pain Status: Resolved Qualifiers: Chest pain type: unspecified Qualified Code(s): R07.9 - Chest pain, unspecified Plan: SUPPLEMENTAL OXYGEN, TELEMETRY, NITROSTAT PRN, CONTINUE TO MONITOR (2) Abdominal pain Status: Acute Qualifiers: Abdominal location: right upper quadrant Qualified Code(s): R10.11 - Right upper quadrant pain Plan: SURGICAL CONSULT FOR LAPROSCOPIC CHOLECYSTECTOMY, ULTRAM PRN PAIN, PEPCID 20MG IV BID, CONTINUE TO MONITOR
== END 2017-02-08 19:10 | disposition home or self-care (01) ==
LOC: ER 05:54 → ICU 08:15
PROVIDERS: ADMIT Internal Medicine; ATTEND Internal Medicine
PROC: 0WQF4ZZ Repair Abdominal Wall, Percutaneous Endoscopic Approach (ICD-10-PCS; 2017-02-08)
PROC: 0FT44ZZ Resection of Gallbladder, Percutaneous Endoscopic Approach (ICD-10-PCS; principal; 2017-02-08 13:30)
DX: R07.89 Other chest pain (principal); R10.84 Generalized abdominal pain; K82.8 Other specified diseases of gallbladder; R06.02 Shortness of breath; R94.31 Abnormal electrocardiogram [ECG] [EKG]; K21.9 Gastro-esophageal reflux disease without esophagitis; R10.11 Right upper quadrant pain; K42.9 Umbilical hernia without obstruction or gangrene
CPT/HCPCS: 36415; 71010; 76705; 78227; 80053; 80061; 81001; 82550; 82553; 83880; 84484; 85025; 85378; 85610; 85730; 86677; 93005; 93010; 96365; 96374; 96375; 99284; A4216; A4222; A9537; S0020; S0028; G0378; J0330; J0690; J1170; J2001; J2270; J2405; J2710; J3010; J3490